=== PATIENT | female | born 1995 | race Asian ===

== ENCOUNTER 2017-06-04 17:02 | Emergency (ER) | payer BC, OTHER ==
[~2017-06-04] VITALS: Ht 157.5 cm; Wt 56.7 kg
[2017-06-04 17:02] VITALS: BP_SYST 113
--- NOTE | 2017-06-04 17:05 | NUR ---
Pt to bed 8
--- NOTE | 2017-06-04 17:10 | NUR ---
Patient to ER via triage with c/o cough, fever, runny nose, and bodyaches x 1 week. Patient able to ambulate to room with slow, steady gait. Patient is awake, alert and oriented in no acute distress, vital signs stable, respirations even and unlabored, skin warm and dry to touch. Patient placed on [employer] officer, BP monitor, and pulse oximeter. Awaiting evaluation by ER MD, will continue to observe and assess.
--- NOTE | 2017-06-04 18:15 | NUR ---
Dr Delvalle at bedside to evaluate patient.
[2017-06-04] MEDS ORDERED: ACETAMINOPHEN 325 MG TABLET PO ONE (18:30)
[2017-06-04] MEDS ORDERED: IBUPROFEN 600 MG TABLET PO ONE (18:30)
--- NOTE | 2017-06-04 18:45 | NUR ---
Patient given written and verbal discharge instructions and verbalizes understanding. ER MD discussed with patient the results and treatment provided. Patient in stable condition. ID arm band removed. Rx of motrin, tylenol given. Patient educated on pain management and to follow up with PMD. Pain Scale 2/10. Opportunity for questions provided and answered.
[2017-06-04 18:46] VITALS: BP_SYST 100
== END 2017-06-04 18:45 | disposition home or self-care (01) ==
LOC: SED 17:02
DX: B34.9 Viral infection, unspecified (principal)
CPT/HCPCS: 99283